=== PATIENT | female | born 1995 | race Caucasian/White ===

== ENCOUNTER 2024-10-12 06:02 | Emergency (ER) | payer OTHER, SELFPAY ==
--- NOTE | ~2024-10-12 | US_ITS ---
Pelvic ultrasound. Clinical History: Evaluate for right ovarian torsion Technique: Realtime transabdominal and transvaginal scanning of the pelvis was performed. Color flow Doppler and Doppler spectral analysis were performed. Findings: Gravid uterus partially imaged. The right ovary measures 2.8 x 2.2 x 2.1 cm. Adjacent to the right ovary, possibly extending from the , as a 6.7 x 4.2 x 6.4 cm echogenic mass. Vascular flow present in the right ovary on color Doppler i maging. The left ovary is not visualized. No significant left ovarian or adnexal mass is seen. There is no evidence of free fluid in the cul de sac. Impression: 6.7 x 4.2 x 6.4 cm echogenic mass in the right adnexal region, possibility of right ovary. Appearance suggests right ovarian dermoid. No evidence for torsion. Gravid uterus partially imaged. Reviewed, dictated and finalized at [facility]. PERSON Impression: 6.7 x 4.2 x 6.4 cm echogenic mass in the right adnexal region, possibility of r ight ovary. Appearance suggests right ovarian dermoid. No evidence for torsion. Gravid uterus partially imaged.
[2024-10-12] MEDS: ONDANSETRON INJ 4 MG/2 ML VIAL IV PUSH (06:16)
[2024-10-12 06:17] VITALS: BP 104/82; PULSE 67; RESP 17; TEMP 36.7; O2SAT 98
[2024-10-12] MEDS: SODIUM CHLORIDE 0.9% IV 2,000 ML 999 ML IV CONT (06:27)
[2024-10-12] MEDS: HYDROmorphone HCL INJ (*CRX) 1 MG/ML SYR IV PUSH (06:40)
[2024-10-12 06:50] LABS: Basophils Absolute Auto 0.1 K/mm3 (0.0-0.1); Basophils Percent Auto 0.6 % (0.2-1.2); Eosinophils Absolute Auto 0.1 K/mm3 (0-0.3); Eosinophils Percent Auto 1.5 % (0-4.4); Hematocrit 32.2 % (37.0-47.0); Hemoglobin 10.2 g/dL (12.0-15.0); Immature Granulocyte Absolute 0.04 K/mm3 (0.00-0.031); Immature Granulocyte Percent A 0.5 % (0-0.5); Lymphocytes Absolute Auto 0.96 K/mm3 (0.9-3.2); Lymphocytes Percent Auto 12.4 % (18.3-44.2); Mean Corpuscular HGB Conc 31.7 g/dl (32-36); Mean Corpuscular Hemoglobin 24.2 pg (26-34); Mean Corpuscular Volume 76.3 fl (80-100); Mean Platelet Volume 10.2 fl (7.4-10.4); Monocytes Absolute Auto 0.5 K/mm3 (0.1-0.6); Monocytes Percent Auto 5.9 % (2.6-8.5); Neutrophils Absolute Auto 6.1 K/mm3 (1.3-6.7); Neutrophils Percent Auto 79.1 % (45.5-73.1); Platelet Count Result 249 k/mm3 (150-375); Red Blood Count 4.22 M/mm3 (4.2-5.4); Red Cell Distribution Width 17.3 % (11.5-14.5); White Blood Count 7.8 K/mm3 (4.5-10.0)
[2024-10-12 06:59] LABS: Lactic Acid Reflex 0.9 mmol/L (0.7-2.0)
[2024-10-12 07:01] LABS: Alanine Aminotransferase 13 U/L (6-35); Albumin Level 3.2 g/dL (3.5-5.1); Alkaline Phosphatase 80 U/L (38-126); Anion Gap 4 mmol/L (4-12); Aspartate Amino Transferase 21 U/L (14-36); Bilirubin,Total 0.3 mg/dL (0.2-1.3); Blood Urea Nitrogen 11 mg/dL (7-17); Calcium 8.2 mg/dL (8.4-10.2); Carbon Dioxide 22 mmol/L (22-30); Chloride 108 mmol/L (98-107); Estimated CRCL calculation 141 ml/min; Estimated Glomerular Filt Rate > 60; Glucose 129 mg/dL (65-110); Potassium 3.5 mmol/L (3.4-5.0); Sodium 134 mmol/L (137-145)
--- NOTE | 2024-10-12 07:38 | ED_ITS ---
HPI - Abdominal Pain General Chief Complaint: Abdominal Pain Stated Complaint: Abd Pain Time Seen by Provider: 10/12/24 07:02 History of Present Illness HPI narrative: Patient is a 28-year-old female who presents ER with right-sided abdominal pain. Is in the lower abdomen near the pelvis. She has a known 7 cm ovarian cyst that has caused her intermittent pain. She had sudden onset sharp pain this morning radiating from the back. Associated with nausea vomiting. No history kidney stones. Received Dilaudid which has helped her. She still has discomfort with lying down flat and cannot tolerate it. She went to OB and the baby was okay she was sent here for further evaluation. No dysuria. No diarrhea. No additional concerns at this time. 22 weeks in gestation. Related Data Allergies Allergy/AdvReac Type Severity Reaction Status Date / Time No Known Allergies Allergy Verified 10/12/24 06:23 Review of Systems Review of Systems: All systems reviewed & are unremarkable except as noted in HPI and below Constitutional: Constitutional: Reports no additional constitutional complaints ENT: Reports system reviewed and no additional complaints, except as documented Cardiovascular: Cardiovascular: Reports no additional cardiovascular complaints Respiratory: Respiratory: Reports no additional respiratory complaints Gastrointestinal: Gastrointestinal: Reports abdominal pain, Denies diarrhea, Reports nausea and Reports vomiting Genitourinary: Genitourinary: Reports no additional female genitourinary complaints PMFSH Past Medical History Medical History (Updated 10/12/24 @ 09:53 by Prakash Hastings MD) Healthy female adult Surgical History Surgical History (Updated 10/12/24 @ 07:40 by Prakash Hastings MD) No history of previous surgery Exam Narrative: GENERAL: Uncomfortable-appearing and standing a position of comfort, well- nourished, and in no acute distress. HEAD: Normocephalic, atraumatic. ENT: Mucous membranes moist. CHEST: Clear to auscultation. No respiratory distress. HEART: Regular rate and rhythm. Normal peripheral pulses. ABDOMEN: Soft, nontender, nondistended. EXTREMITIES: Normal range of motion. No edema. SKIN: Warm, dry, no rash. NEURO: Alert and oriented x3. PSYCH: Normal mood and affect. Course Course Emergency Course: Discussed with Dr. Craig with OB at [facility][note 3], accepts for Dr. Alvarado. Patient with persistent pain despite Dilaudid 2 mg. She has had Phenergan 12.5 mg and Zofran 4 mg. Patient reports that she has cervical check in OB and that her cervix was closed. heart tones 140bpm. Accepts transfer to [facility] at [place]. May been surgical removal of cyst. Vital Signs Vital signs: Vital Signs Temperature 98.1 F 10/12/24 06:17 Pulse Rate 67 10/12/24 06:17 Respiratory Rate 17 10/12/24 06:17 Blood Pressure 104/82 10/12/24 06:17 Pulse Oximetry 98 10/12/24 06:17 Oxygen Delivery Room Air 10/12/24 06:17 Temperature 97.9 F 10/12/24 08:15 Pulse Rate 66 10/12/24 08:15 Respiratory Rate 16 10/12/24 08:15 Blood Pressure 153/44 H 10/12/24 08:15 Pulse Oximetry 100 10/12/24 08:15 Oxygen Delivery Room Air 10/12/24 06:17 MDM - Abdominal Pain Lab Data 10/12/24 06:42 10/12/24 06:42 Labs: Lab Results 10/12/24 10/12/24 Range/Units 06:42 07:48 WBC 7.8 (4.5-10.0) K/mm3 RBC 4.22 (4.2-5.4) M/mm3 Hgb 10.2 L (12.0-15.0) g/dL Hct 32.2 L (37.0-47.0) % MCV 76.3 L (80-100) fl MCH 24.2 L (26-34) pg MCHC 31.7 L (32-36) g/dl RDW 17.3 H (11.5-14.5) % Plt Count 249 (150-375) k/mm3 MPV 10.2 (7.4-10.4) fl Immature Gran % (Auto) 0.5 (0-0.5) % Neut % (Auto) 79.1 H (45.5-73.1) % Lymph % (Auto) 12.4 L (18.3-44.2) % [place] % (Auto) 5.9 (2.6-8.5) % Eos % (Auto) 1.5 (0-4.4) % Baso % (Auto) 0.6 (0.2-1.2) % Lymph # (Auto) 0.96 (0.9-3.2) K/mm3 [place] # (Auto) 0.5 (0.1-0.6) K/mm3 Eos # (Auto) 0.1 (0-0.3) K/mm3 Baso # (Auto) 0.1 (0.0-0.1) K/mm3 Abs Immat Gran (auto) 0.04 H (0.00-0.031) K/mm3 Absolute Neuts (auto) 6.1 (1.3-6.7) K/mm3 Absolute Nucleated RBC 0.000 (0.0-0.012) K/mm3 Nucleated RBC % 0.0 (0.0-0.2) % Sodium 134 L (137-145) mmol/L Potassium 3.5 (3.4-5.0) mmol/L Chloride 108 H (98-107) mmol/L Carbon Dioxide 22 (22-30) mmol/L Anion Gap 4 (4-12) mmol/L BUN 11 (7-17) mg/dL Creatinine 0.50 L (0.7-1.0) mg/dL Estim Creat Clear Calc 141 ml/min Estimated GFR > 60 (59 - ) Glucose 129 H (65-110) mg/dL Lactic Acid 0.9 (0.7-2.0) mmol/L Calcium 8.2 L (8.4-10.2) mg/dL Total Bilirubin 0.3 (0.2-1.3) mg/dL AST 21 (14-36) U/L ALT 13 (6-35) U/L Alkaline Phosphatase 80 (38-126) U/L Total Protein 6.0 L (6.3-8.2) g/dL Albumin 3.2 L (3.5-5.1) g/dL Urine Color Yellow (Yellow) Urine Appearance Clear (Clear) Urine pH 5.5 (5.0-9.0) Ur Specific [place] 1.031 (1.001-1.035) Urine Protein 1+ H (Negative) mg/dL Urine Glucose (UA) Negative (Negative) mg/dL Urine Ketones Negative (Negative) mg/dL Ur Blood (Man) Negative (Negative) Urine Nitrate Negative (Negative) Urine Bilirubin Negative (Negative) Urine Urobilinogen 1.0 (<2.0) mg/dL Add Ur Microanalysis Reviewed Leukocyte Esterase Rfl Negative (Negative) ELLIOTT/UL Urine RBC 0-2 (0-2) /hpf Urine WBC 0-5 (0-3) /hpf Ur Squamous Epith Cells None seen (Few) /hpf Urine Bacteria None seen /hpf Urine Casts 0-2 Imaging Data Radiologist's impression: ITS Impressions Pelvic/Transvag US 10/12/24 07:56 Impression: 6.7 x 4.2 x 6.4 cm echogenic mass in the right adnexal region, possibility of right ovary. Appearance suggests right ovarian dermoid. No evidence for torsion. Gravid uterus partially imaged. Discharge Plan Discharge Clinical Impression: Ovarian cyst, Intractable abdominal pain Patient Disposition: Acute Care Hospital Condition: Stable Follow-up/Referrals: UNKNOWN,DOCTOR [Primary Care Provider] -
[2024-10-12] MEDS: HYDROmorphone HCL INJ (*CRX) 1 MG/ML SYR 0.5 MG IV PUSH ×2 (08:06→10:07)
[2024-10-12] MEDS: PROMETHAZINE HCL 25 MG/ML AMPUL 12.5 MG IV PUSH (08:07)
[2024-10-12 08:13] LABS: Add Urine Microscopic? YES; Appearance Urine Clear (Clear); Bacteria Urine None Seen /hpf; Bilirubin Urine Negative (Negative); Blood Urine Negative (Negative); Color Urine Yellow (Yellow); Glucose Urine UA Negative (Negative); Ketones Urine Negative (Negative); Leukocyte Esterase Ur Negative LEU/UL (Negative); Need Manual Microscopic Reviewed; Nitrate Urine Negative (Negative); Non Pathogenic Casts 0-2; Protein Urine 1+ mg/dL (Negative); RBC Urine 0-2 /hpf (0-2); Specific Grav Ur 1.031 (1.001-1.035); Squamous Epithelial Cell Urine None Seen /hpf (Few); WBC Urine 0-5 /hpf (0-3); pH Urine 5.5 (5.0-9.0)
[2024-10-12 08:15] VITALS: BP 153/44; PULSE 66; RESP 16; TEMP 36.6; O2SAT 100
--- NOTE | 2024-10-12 09:26 | PC.NURSE ---
Pt is being accepted at [facility] with accepting physician dr Alvarado. Report called to Katia GALARZA
[2024-10-12 10:13] VITALS: BP 111/66; PULSE 67; RESP 18; O2SAT 100
== END 2024-10-12 10:15 | disposition short-term general hospital (02) ==
PROVIDERS: Emergency Medicine; Emergency Provider Emergency Medicine
DX: O34.82 Maternal care for other abnormalities of pelvic organs, second trimester (principal); N83.201 Unspecified ovarian cyst, right side; Z3A.22 22 weeks gestation of pregnancy
CPT/HCPCS: 36415; 76830; 76856; 80053; 81001; 83605; 85025; 96361; 96374; 96375; 96376; 99285; J1171; J2405; J2550; J7030